=== PATIENT | male | born 2005 | race Caucasian/White ===

== ENCOUNTER → 2024-02-07 09:53 | Outpatient (REF) | payer BC, SELFPAY ==
[2024-02-07 11:07] LABS: Free T4 1.12 ng/dl (0.78-2.19)
[2024-02-07 11:22] LABS: TSH 7.01 uIU/ml (0.47-4.68)
== END ==
LOC: OLAB 09:53
PROVIDERS: ATTENDING PHYSICIAN Family Medicine
DX: E03.8 Other specified hypothyroidism (principal)
CPT/HCPCS: 36415; 84439; 84443